=== PATIENT | female | born 1940 | race Asian ===

== ENCOUNTER 2017-10-16 11:45 | Outpatient (CLI) | payer MEDICARE, OTHER | END 2017-10-16 11:46 | disposition home or self-care (01) | LOC: BICRAD 11:45 | PROVIDERS: ATTEND Internal Medicine | DX: R05 Cough (principal) | CPT/HCPCS: 71046 ==

== ENCOUNTER 2017-10-20 10:00 | Observation (INO) | payer MEDICARE, OTHER ==
[2017-10-20] MEDS ORDERED: Ketorolac Tromethamine 30 MG/ML VIAL ONE (10:20)
[2017-10-20 10:45] LABS: #Lymphocytes 0.5 thou/uL (1.20-3.40); #Monocytes 0.6 thou/uL (0.11-0.59); #Neutrophils 7.7 thou/uL (1.40-6.50); %Basophils 0.5 % (0.0-1.0); %Eosinophils 0.1 % (0.0-10.0); %Lymphocytes 6.1 % (21.0-51.0); %Monocytes 6.4 % (0.0-10.0); Hemoglobin 13.5 g/dL (12.0-16.0); Mean Corpuscular HGB CONC 33.8 g/dL (32.0-36.0); Mean Corpuscular Hemoglobin 31.5 pg (27.0-31.0); Mean Corpuscular Volume 93.2 fl (81.0-99.0); Mean Platelet Volume 7.6 fL (7.4-10.4); Platelet Count 174 thou/uL (130-400); RBC Distribution Width 11.1 % (11.5-14.5); Red Blood Cell (RBC) Count 4.28 mill/uL (4.20-5.40); White Blood Cell (WBC) Count 8.8 thou/uL (4.8-10.8)
[2017-10-20 11:13] LABS: ALT (SGPT) 29 U/L (8-55); AST (SGOT) 51 U/L (5-34); Alkaline Phosphatase 72 U/L (40-150); Anion Gap 15 mmol/L (10-20); BUN (Urea Nitrogen) 19 mg/dL (9.8-20.1); Bilirubin, Total 1.6 mg/dL (0.2-1.2); Calc. Creatinine Clearance 0 mL/min (70-130); Calcium 9.7 mg/dL (7.8-10.44); Carbon Dioxide 29 mmol/L (23-31); Chloride 90 mmol/L (98-107); Estimated GFR-MDRD 81; Globulin 2.9 g/dL (2.4-3.5); Glucose 121 mg/dL (83-110); Potassium 3.8 mmol/L (3.5-5.1); Protein, Total 6.9 g/dL (6.0-8.3); Sodium 130 mmol/L (136-145)
[2017-10-20 11:36] LABS: CRP (Inflammatory) 10.37 mg/dL (= or < 0.5)
[2017-10-20 11:41] LABS: Bilirubin Negative (Negative); Blood, Urine Moderate (Negative); Clarity CLEAR (Clear); Glucose, Urine (Dipstick) Negative (Negative); Leukocyte Negative (Negative); Nitrite Negative (Negative); Protein, Urine (Dipstick) 30 mg/dL (Neg-Trace); Specific Gravity, Urine 1.014 (1.002-1.036); Urobilinogen 0.2 mg/dL (0.2-1.0)
[2017-10-20 11:42] LABS: Bacteria/HPF None Seen HPF (None Seen); Hyaline Casts/LPF 0-3 HYALINE CAST LPF (0-3 Hyaline); Squamous Epithelial None Seen HPF (0-3); WBC/HPF None Seen HPF (0-3)
[2017-10-20] MEDS ORDERED: Morphine 10 MG/ML VIAL ONE (12:00)
--- NOTE | 2017-10-20 12:12 | RAD ---
AP VIEW OF THE CHEST: INDICATION: Flu-like symptoms with leg pain. COMPARISON: None. FINDINGS: No airspace consolidation is evident. There is moderate COPD change. There is chondrocalcinosis ove rlying the anterior chest wall. Heart size is upper limits of normal. There are vascular calcificat ions in the aortic arch. No acute osseous abnormality is evident. IMPRESSION: No acute abnormality. POS: [facility]
--- NOTE | 2017-10-20 12:13 | RAD ---
AP VIEW OF THE PELVIS: INDICATION: Flu-like symptoms with leg pain and muscle aches. COMPARISON: None. FINDINGS: There are percutaneous pins transfixing the left sacroiliac joint. There is also a sliding hip screw and side plate involving the proximal left femur. No acute fracture is evident. There is diffuse o steopenia. IMPRESSION: Postoperative pelvis. No acute osseous abnormality. POS: [facility]
--- NOTE | 2017-10-20 13:00 | ULT ---
ULTRASOUND WITH DOPPLER DUPLEX VENOUS LOWER EXTREMITIES BILATERAL: HISTORY: A 77-year-old female with bilateral lower extremity pain. TECHNIQUE: Color flow Doppler, spectral waveform analysis of pulsed Doppler, and connell-scale imaging with shania wild and augmentation, were used to evaluate the bilateral common femoral, femoral, popliteal, machine sign writer ior tibial, and superficial femoral, veins; and the proximal portions of the profunda femoral and gre ater saphenous, veins. FINDINGS: There is normal compressibility, demonstration of blood flow by color Doppler and pulsed Doppler, and response to augmentation, in all interrogated veins. IMPRESSION: Negative. No deep vein thrombosis in the bilateral lower extremities. jn[] POS: [facility]
[2017-10-20] MEDS ORDERED: Sodium Chloride 0.9% 1,000 ML IV SCH (15:23)
[2017-10-20] MEDS ORDERED: Ondansetron ODT 4 MG TAB SL PRN (15:23)
[2017-10-20] MEDS ORDERED: Ondansetron HCl/PF 4 MG/2 ML Vial IVP PRN ×2 (15:23→15:26)
--- NOTE | 2017-10-20 15:25 | HP ---
DATE OF ADMISSION: 10/20/2017 PRIMARY CARE PHYSICIAN: Dr. Ev Blackwell. CHIEF COMPLAINT: Muscle aches, worsening, mostly in legs. HISTORY OF PRESENTING ILLNESS: Ms. Cotton is a very pleasant 77-year-old [place] female with past medic al history of dyslipidemia, currently on statin, who presented to the ER with the above-mentioned com plaints. History is mainly obtained by the patient herself who is a rather poor historian. Suppleme nted by the ER physician. According to the ER physician; patient has been having some flu-like illnesses earlier this week and went to see her primary care physician. She did not receive any Tamiflu for unclear reason; likely b ecause she was out of the window of the treatment. Then, 2 days ago, she started to develop bilatera l lower extremity and hip pain which has gotten worse. She lives by herself and is having difficulty getting around in the house to take care of her ADLs and IADLs. She otherwise denies any nausea, vo miting, diarrhea. She does have some urinary difficulties and has been having some dry cough. She d enies any fever or chills. She denies any injury. She denies any changes in her medication except f or the fact that she has not taken her statin for the last 2 days. Upon presentation to the emergency room, she was hemodynamically stable with blood pressure of 158/91 , pulse of 95, saturating 96% on room air and afebrile. Her workup revealed elevated CPK of over 900 and elevated C-reactive protein of 10. Her urine has moderate blood, rbc's, trace ketones and some protein. She was treated with IV pain medication as well as IV fluids. She underwent a lower extrem ity ultrasound which is negative for any DVT. She underwent x-ray of the pelvis, which is negative f or any osseous abnormality. She is now being admitted under observation status on medical floor for rhabdomyolysis. PAST MEDICAL HISTORY: 1. Dyslipidemia. 2. Glaucoma. PAST SURGICAL HISTORY: 1. Mass removed from intestines. 2. Appendectomy. 3. Left hip surgery. PSYCHIATRIC HISTORY: No anxiety, no depression. SOCIAL HISTORY: No history of drug, tobacco or alcohol abuse. She currently lives alone and has no immediate family locally. FAMILY HISTORY: Significant for unknown type of cancer in her father. Her mother was relatively hea lthy. She denies any family history of heart disease, stroke, diabetes or hypertension. ALLERGIES: No known current allergies. CURRENT MEDICATIONS: Pravastatin 5 mg daily and Alphagan eyedrops twice a day. REVIEW OF SYSTEMS: The following complete review of systems was negative, unless otherwise mentioned in the HPI or below: Constitutional: Weight loss or gain, ability to conduct usual activities. Skin: Rash, itching. Eyes: Double vision, pain. ENT/Mouth: Nose bleeding, neck stiffness, pain, tenderness. Cardiovascular: Palpitations, dyspnea on exertion, orthopnea. Respiratory: Shortness of breath, wheezing, cough, hemoptysis, fever or night sweats. Gastrointestinal: Poor appetite, abdominal pain, heartburn, nausea, vomiting, constipation, or diarr hea. Genitourinary: Urgency, frequency, dysuria, nocturia. Musculoskeletal: Pain, swelling. Neurologic/Psychiatric: Anxiety, depression. Allergy/Immunologic: Skin rash, bleeding tendency. She is still hurting in her leg and complains of generalized weakness. It is negative for those exce pt mentioned in HPI. PHYSICAL EXAMINATION: VITAL SIGNS: Upon presentation, blood pressure 158/91, pulse of 95, respirations 20, temperature 98. 2, and saturating 96% on the room air. GENERAL: She is awake, alert, oriented x3, no acute distress. She does appear tired, weak, and very thin. HEENT: Mucous membrane is moist and pink. No oropharyngeal exudate or erythema. Head is normocepha lic are atraumatic. Pupils are equal and reactive to light and accommodation. Extraocular movement intact. NECK: Supple without any lymphadenopathy, JVD or bruit. CHEST: Clear to auscultation without any wheezing, rales or rhonchi. Rate and rhythm is regular wit hout any murmur, rubs or gallops. ABDOMEN: Soft, nontender, nondistended with positive bowel sounds. EXTREMITIES: Free of any cyanosis, clubbing, or edema. NEUROLOGIC: Examination is nonfocal. SKIN: Free of any rashes or bruises. I feel warm and dry to touch. PSYCHIATRIC: She has somewhat depressed affect. LABORATORY DATA AND IMAGING DATA: 1. Her CBC shows 87% neutrophils. ESR is normal at 11. Serum chemistry shows sodium of 130, chlori de 90, blood sugar 121, lactic acid 1.2, total bilirubin 1.6, AST 51 with normal ALT and alkaline lorena sphatase. Creatinine kinase 917. C-reactive protein is 10.37. Urinalysis showed proteinuria, keton uria and some microscopic hematuria. 2. Chest x-ray by my review has no evidence to suggest pulmonary effusion, edema or infiltrate. Low er extremity ultrasound is negative for any DVT bilaterally. Pelvic x-ray is free of any osseous abn ormalities. IMPRESSION AND PLAN: 1. Acute rhabdomyolysis, this is likely exacerbated by current illness and the fact that the patient has been on statin. I have instructed her to stop the statins for now and discuss the treatment of dyslipidemia with her primary care physician. At this time, she will be treated with generous IV flu ids and we will recheck CPK in the morning. At this time, she has no evidence to suggest renal failu re. She will be treated symptomatically and supportively. We will also check a TSH to rule out othe r etiology. 2. Leukocytosis. This is likely reactive as there is no increase in the total WBC count. Her urine does have some hematuria, but no clear evidence of infection. There is no indication for antibiotic s at this time. 3. Malnutrition. The patient does appear somewhat cachectic. We will start her on Ensure 3 times a day and consult the dietitian for dietary recommendations. 4. History of dyslipidemia. Once again, I have instructed the patient not to use statins in the artie r future without discussion with the primary care physician. If she does indeed need the statin, pra vastatin or fluvastatin will be a safer choice for her. 5. Code status: FULL CODE. Discussed with the patient. DISPOSITION: Ms. Cotton is currently being admitted to medical floor for acute rhabdomyolysis. Estimate d length of stay at this time is less than 2 midnights. Further management will depend upon her clin ical course.
[2017-10-20] MEDS ORDERED: Benzonatate 100 MG CAP PO PRN (15:26)
[2017-10-20] MEDS ORDERED: hydrALAZINE 20 MG/ML VIAL SLOW IVP PRN (15:26)
[2017-10-20] MEDS ORDERED: Diabetic Tussin 200 MG/10 ML UDCUP PO PRN (15:26)
[2017-10-20] MEDS ORDERED: Calcium Carbonate 500 MG ChewTAB PO PRN (15:26)
[2017-10-20] MEDS ORDERED: Mag-Al 1200 mg/1200 mg/30 ML UDCUP PO PRN (15:26)
[2017-10-20] MEDS ORDERED: Loratadine 10 MG TAB PO PRN (15:26)
[2017-10-20] MEDS ORDERED: Lorazepam 1 MG TAB PO PRN (15:26)
[2017-10-20] MEDS ORDERED: Senokot 8.6 MG TAB PO PRN ×2 (15:26)
[2017-10-20] MEDS ORDERED: Nitroglycerin 0.4 MG TAB (25 Tab Bottle) SL PRN (15:26)
[2017-10-20] MEDS ORDERED: cloNIDine 0.1 MG TAB PO PRN (15:26)
[2017-10-20] MEDS ORDERED: Bisacodyl 5 MG TAB PO PRN (15:26)
[2017-10-20] MEDS ORDERED: Acetaminophen 325 MG TAB PO PRN (15:26)
[2017-10-20 16:34] VITALS: BMI 15.0
[2017-10-20] MEDS: Sodium Chloride 0.9% 1,000 ML IV SCH ×2 (16:35→19:07)
[2017-10-20] MEDS: traMADol HCl 50 MG TAB PO PRN (16:45)
[2017-10-20] MEDS: HYDROcodone/Acetaminophen 5/325 mg Tablet PO PRN (19:17)
[2017-10-20] MEDS ORDERED: FLU VACC TS2017-18 (>65YR) 0.5 ML SYRINGE IM ONE (21:00)
[2017-10-21] MEDS: Sodium Chloride 0.9% 1,000 ML IV SCH ×4 (00:29→20:13)
[2017-10-21 04:35] LABS: #Monocytes 0.8 thou/uL (0.11-0.59); #Neutrophils 4.6 thou/uL (1.40-6.50); %Basophils 0.2 % (0.0-1.0); %Eosinophils 0.6 % (0.0-10.0); %Lymphocytes 15.5 % (21.0-51.0); %Monocytes 11.6 % (0.0-10.0); %Neutrophils 72.1 % (42.0-75.0); Mean Corpuscular HGB CONC 33.5 g/dL (32.0-36.0); Mean Corpuscular Hemoglobin 31.6 pg (27.0-31.0); Mean Corpuscular Volume 94.1 fl (81.0-99.0); Mean Platelet Volume 7.3 fL (7.4-10.4); Platelet Count 161 thou/uL (130-400); RBC Distribution Width 11.1 % (11.5-14.5); Red Blood Cell (RBC) Count 3.49 mill/uL (4.20-5.40); White Blood Cell (WBC) Count 6.4 thou/uL (4.8-10.8)
[2017-10-21 05:02] LABS: Anion Gap 10 mmol/L (10-20); BUN (Urea Nitrogen) 14 mg/dL (9.8-20.1); CK (CPK) 282 U/L (29-168); Calc. Creatinine Clearance 51 mL/min (70-130); Calcium 8.1 mg/dL (7.8-10.44); Carbon Dioxide 26 mmol/L (23-31); Chloride 101 mmol/L (98-107); Estimated GFR-MDRD Greater than 90; Glucose 105 mg/dL (83-110); Sodium 134 mmol/L (136-145)
[2017-10-21] MEDS: HYDROcodone/Acetaminophen 5/325 mg Tablet PO PRN ×3 (05:56→21:15)
[2017-10-21] MEDS: traMADol HCl 50 MG TAB PO PRN ×2 (08:00→13:31)
[2017-10-21] MEDS ORDERED: Potassium Chloride 40 MEQ in Premix Bag 1 BAG IVPB SCH (09:15)
[2017-10-21] MEDS ORDERED: Potassium Chloride 40 MEQ, Admixture Fee 1 EACH in Sodium Chloride 0.9% 250 ML 250 ML IVPB SCH (09:30)
--- NOTE | 2017-10-21 13:44 | PDOC.PN ---
- Subjective Encounter Start Date: 10/21/17 Encounter Start Time: 13:43 Subjective: still c/o svere pain in both legs and back ,not moving at all - Objective MAR Reviewed: Yes Vital Signs & Weight: Vital Signs (12 hours) Temp Pulse Resp BP Pulse Ox 10/21/17 11:24 98.6 F 74 18 149/78 H 96 10/21/17 08:00 98.6 F 74 18 93 L 10/21/17 07:41 98.1 F 80 16 162/82 H 93 L 10/21/17 04:00 98.5 F 75 18 135/72 94 L Weight Admit Weight 87 lb 12.48 oz Weight 87 lb 12.48 oz I&O: 10/20/17 10/21/17 10/22/17 06:59 06:59 06:59 Intake Total 4880 Balance 4880 Result Diagrams: 10/21/17 04:20 10/21/17 04:20 Additional Labs: Microbiology 10/20/17 10:38 Urine Straight Catheter Urine Culture - Preliminary NO GROWTH AT 24 HOURS 10/20/17 10:27 Venous blood - Right Arm Blood Culture - Preliminary Specimen has been received and culture in progress. No Growth to date. 10/20/17 10:27 Venous blood - Left Arm Blood Culture - Preliminary Specimen has been received and culture in progress. No Growth to date. Laboratory Tests 10/20/17 10/20/17 10/21/17 10:35 10:35 04:20 Creatine Kinase 917 H 282 H C-Reactive Protein 10.37 H TSH 3rd Generation [id number] 10/21/17 04:20 Creatine Kinase C-Reactive Protein 6.77 H TSH 3rd Generation Phys Exam - Physical Examination very uncomfortable due to pain.cachectic HEENT: PERRLA, moist MMs, sclera anicteric, TM's clear, oral pharynx no lesions , 2+ tonsils Neck: no nodes, no JVD, supple, full ROM Respiratory: no wheezing, no rales, no rhonchi, clear to auscultation bilateral Cardiovascular: RRR, no significant murmur, no rub, gallop Gastrointestinal: soft, non-tender, no distention, positive bowel sounds Musculoskeletal: no edema, pulses present Neurological: non-focal, normal sensation, moves all 4 limbs no erythema,warmth,swelling in leg.non tarumatic Psychiatric: normal affect, A&O x 3 Skin: no rash Dx/Plan (1) Rhabdomyolysis Code(s): M62.82 - RHABDOMYOLYSIS Status: Acute Qualifiers: Rhabdomyolysis type: non-traumatic Qualified Code(s): M62.82 - Rhabdomyolysis (2) Hypokalemia Code(s): E87.6 - HYPOKALEMIA Status: Acute (3) Pain Code(s): R52 - PAIN, UNSPECIFIED Status: Acute (4) HLD (hyperlipidemia) Code(s): E78.5 - HYPERLIPIDEMIA, UNSPECIFIED Status: Chronic (5) Moderate protein-calorie malnutrition Code(s): E44.0 - MODERATE PROTEIN-CALORIE MALNUTRITION Status: Chronic - Plan PT/OT, out of bed/ambulate, DVT proph w/SCDs CPK & CRP both trending down w IVF.cont NS.add prn morphine -: likley rhabdo on top of statin induced myopathy.Statin stopped -: pt unable to go home d/t uncontrolled pain.will have rehab eval -: lives alone and high risk of re-admit as she won't be able to take care of -: herself.encouraged to move to prevent further muscle damage * .recheck CPK in am * replace and recheck potassium * Ensure TID.consult dietitian Review of Systems - Review of Systems Constitutional: weakness, malaise ENT: negative: Ear Pain, Ear Discharge, Nose Pain, Nose Discharge, Nose Congestion, Mouth Pain, Mouth Swelling, Throat Pain, Throat Swelling, Other Respiratory: negative: Cough, Dry, Shortness of Breath, Hemoptysis, SOB with Excertion, Pleuritic Pain, Sputum, Wheezing Cardiovascular: negative: chest pain, palpitations, orthopnea, paroxysmal nocturnal dyspnea, edema, light headedness, other Gastrointestinal: negative: Nausea, Vomiting, Abdominal Pain, Diarrhea, Constipation, Melena, Hematochezia, Other Genitourinary: negative: Dysuria, Frequency, Incontinence, Hematuria, Retention , Other Musculoskeletal: Leg Pain. negative: Neck Pain, Shoulder Pain, Arm Pain, Back Pain, Hand Pain, Foot Pain, Other Neurological: negative: Weakness, Numbness, Incoordination, Change in Speech, Confusion, Seizures, Other - Medications/Allergies Allergies/Adverse Reactions: Allergies Allergy/AdvReac Type Severity Reaction Status Date / Time No Known Allergies Allergy Unverified 10/20/17 15:23 Medications: Current Medications Acetaminophen (Tylenol) 650 mg PO Q4H PRN PRN Reason: Headache/Fever or Pain Hydrocodone Bitart/Acetaminophen ([place] 5/325) 1 tab PO Q4H PRN PRN Reason: Moderate Pain (4-6) Last Admin: 10/21/17 10:52 Dose: 1 tab Al Hydroxide/Mg Hydroxide (Maalox) 30 ml PO Q6H PRN PRN Reason: Heartburn or Indigestion Benzonatate (Tessalon) 100 mg PO Q4H PRN PRN Reason: Cough Bisacodyl (Dulcolax) 10 mg PO DAILYPRN PRN PRN Reason: Constipation Bisacodyl (Dulcolax) 10 mg PO DAILYPRN PRN PRN Reason: Constipation Calcium Carbonate (Tums) 1,000 mg PO Q4H PRN PRN Reason: Heartburn or Indigestion Clonidine (Catapres) 0.1 mg PO Q4H PRN PRN Reason: Systolic BP > 160 Guaifenesin (Robitussin Sf) 200 mg PO Q4H PRN PRN Reason: Cough Hydralazine HCl (Apresoline) 10 mg SLOW IVP Q4H PRN PRN Reason: Systolic BP > 170 Sodium Chloride (Normal Saline 0.9%) 1,000 mls @ 200 mls/hr IV .Q5H ABIGAIL Last Admin: 10/21/17 10:54 Dose: 1,000 mls Loratadine (Claritin) 10 mg PO DAILYPRN PRN PRN Reason: Sinus Symptoms Lorazepam (Ativan) 1 mg PO Q4H PRN PRN Reason: Anxiety/Agitation Nitroglycerin (Nitrostat) 0.4 mg SL Q5MIN PRN PRN Reason: Chest Pain Ondansetron HCl (Zofran) 4 mg IVP Q6H PRN PRN Reason: Nausea/Vomiting Senna (Senokot) 2 tab PO HSPRN PRN PRN Reason: Constipation Senna (Senokot) 2 tab PO HSPRN PRN PRN Reason: Constipation Sodium Chloride (Flush - Normal Saline) 10 ml IVF Q12HR ABIGAIL Sodium Chloride (Flush - Normal Saline) 10 ml IVF PRN PRN PRN Reason: Saline Flush Tramadol HCl (Ultram) 50 mg PO Q4H PRN PRN Reason: Moderate Pain (4-6) Last Admin: 10/21/17 08:00 Dose: 50 mg
[2017-10-21] MEDS: Bisacodyl 5 MG TAB PO PRN (15:05)
[2017-10-21] MEDS: Morphine 5 MG/ML SYRINGE SLOW IVP PRN ×2 (15:45→20:14)
[2017-10-22] MEDS: Sodium Chloride 0.9% 1,000 ML IV SCH ×4 (01:19→18:25)
[2017-10-22] MEDS: HYDROcodone/Acetaminophen 5/325 mg Tablet PO PRN ×3 (04:54→20:55)
[2017-10-22 05:13] LABS: Anion Gap 8 mmol/L (10-20); BUN (Urea Nitrogen) 9 mg/dL (9.8-20.1); CK (CPK) 143 U/L (29-168); Calc. Creatinine Clearance 53 mL/min (70-130); Calcium 8.1 mg/dL (7.8-10.44); Carbon Dioxide 30 mmol/L (23-31); Chloride 99 mmol/L (98-107); Estimated GFR-MDRD Greater than 90; Glucose 123 mg/dL (83-110); Sodium 134 mmol/L (136-145)
[2017-10-22 05:18] LABS: Potassium 2.8 mmol/L (3.5-5.1)
[2017-10-22] MEDS: traMADol HCl 50 MG TAB PO PRN (06:25)
[2017-10-22] MEDS: Morphine 5 MG/ML SYRINGE SLOW IVP PRN ×3 (09:06→22:16)
[2017-10-22] MEDS: Bisacodyl 5 MG TAB PO PRN (09:47)
--- NOTE | 2017-10-22 12:47 | PDOC.PN ---
- Subjective Encounter Start Date: 10/22/17 Encounter Start Time: 12:45 Subjective: a liitle better but only when uses morphine -: says that moving ,even in bed is painful.back hurts & legs hurt - Objective MAR Reviewed: Yes Vital Signs & Weight: Vital Signs (12 hours) Temp Pulse Pulse Pulse Resp BP BP 10/22/17 10:45 87 91 159/83 H 129/76 10/22/17 07:25 99.0 F 87 18 10/22/17 05:37 98.6 F 70 18 BP Pulse Ox Pulse Ox Pulse Ox 10/22/17 10:45 96 90 L 10/22/17 07:25 165/86 H 95 10/22/17 05:37 145/74 H 94 L Weight Admit Weight 87 lb 12.48 oz Weight 87 lb 12.48 oz I&O: 10/21/17 10/22/17 10/23/17 06:59 06:59 06:59 Intake Total 4880 240 Output Total 4500 Balance 4880 -4260 Result Diagrams: 10/21/17 04:20 10/22/17 04:28 Additional Labs: Microbiology 10/20/17 10:38 Urine Straight Catheter Urine Culture - Final NO GROWTH AT 48 HOURS 10/20/17 10:27 Venous blood - Right Arm Blood Culture - Preliminary NO GROWTH AT 48 HOURS 10/20/17 10:27 Venous blood - Left Arm Blood Culture - Preliminary NO GROWTH AT 48 HOURS Laboratory Tests 10/20/17 10/21/17 10/21/17 10:35 04:20 04:20 Magnesium Creatine Kinase 917 H 282 H C-Reactive Protein 10.37 H 6.77 H 10/22/17 10/22/17 10/22/17 04:28 04:28 04:28 Magnesium 1.5 L Creatine Kinase 143 C-Reactive Protein 3.65 H Phys Exam - Physical Examination Constitutional: NAD more comfortable than yesterday HEENT: PERRLA, moist MMs, sclera anicteric, oral pharynx no lesions Neck: no nodes, no JVD, supple, full ROM Respiratory: no wheezing, no rales, no rhonchi, clear to auscultation bilateral Cardiovascular: RRR, no significant murmur Gastrointestinal: soft, non-tender, no distention, positive bowel sounds Musculoskeletal: no edema, pulses present no swelling,erythema,tenderness in legs.moving against gravity Neurological: non-focal, normal sensation, moves all 4 limbs Psychiatric: normal affect, A&O x 3 Skin: no rash Dx/Plan (1) Rhabdomyolysis Code(s): M62.82 - RHABDOMYOLYSIS Status: Acute Qualifiers: Rhabdomyolysis type: non-traumatic Qualified Code(s): M62.82 - Rhabdomyolysis (2) Hypokalemia Code(s): E87.6 - HYPOKALEMIA Status: Acute (3) Pain Code(s): R52 - PAIN, UNSPECIFIED Status: Acute (4) HLD (hyperlipidemia) Code(s): E78.5 - HYPERLIPIDEMIA, UNSPECIFIED Status: Chronic (5) Moderate protein-calorie malnutrition Code(s): E44.0 - MODERATE PROTEIN-CALORIE MALNUTRITION Status: Chronic - Plan PT/OT, out of bed/ambulate CPK Normalised.CRP trending down.reduce IVF.encouraged for PO intake -: replace & recheck Potassium & mag. -: awaitin Rehab eval per her request.lives alone & can not go home -: not moving out of bed so far due to pain -: am labs.Statin stopped * . Review of Systems - Review of Systems Constitutional: weakness, malaise. negative: fever, chills, sweats, other Eyes: negative: Pain, Vision Change, Conjunctivae Inflammation, Eyelid Inflammation, Redness, Other ENT: negative: Ear Pain, Ear Discharge, Nose Pain, Nose Discharge, Nose Congestion, Mouth Pain, Mouth Swelling, Throat Pain, Throat Swelling, Other Respiratory: negative: Cough, Dry, Shortness of Breath, Hemoptysis, SOB with Excertion, Pleuritic Pain, Sputum, Wheezing Cardiovascular: negative: chest pain, palpitations, orthopnea, paroxysmal nocturnal dyspnea, edema, light headedness, other Gastrointestinal: negative: Nausea, Vomiting, Abdominal Pain, Diarrhea, Constipation, Melena, Hematochezia, Other Genitourinary: negative: Dysuria, Frequency, Incontinence, Hematuria, Retention , Other Musculoskeletal: Back Pain, Leg Pain. negative: Neck Pain, Shoulder Pain, Arm Pain, Hand Pain, Foot Pain, Other Skin: negative: Rash, Lesions, Lei, Bruising, Other Neurological: negative: Weakness, Numbness, Incoordination, Change in Speech, Confusion, Seizures, Other - Medications/Allergies Allergies/Adverse Reactions: Allergies Allergy/AdvReac Type Severity Reaction Status Date / Time No Known Allergies Allergy Unverified 10/20/17 15:23 Medications: Current Medications Acetaminophen (Tylenol) 650 mg PO Q4H PRN PRN Reason: Headache/Fever or Pain Hydrocodone Bitart/Acetaminophen ([place] 5/325) 1 tab PO Q4H PRN PRN Reason: Moderate Pain (4-6) Last Admin: 10/22/17 04:54 Dose: 1 tab Al Hydroxide/Mg Hydroxide (Maalox) 30 ml PO Q6H PRN PRN Reason: Heartburn or Indigestion Benzonatate (Tessalon) 100 mg PO Q4H PRN PRN Reason: Cough Bisacodyl (Dulcolax) 10 mg PO DAILYPRN PRN PRN Reason: Constipation Last Admin: 10/22/17 09:47 Dose: 10 mg Bisacodyl (Dulcolax) 10 mg PO DAILYPRN PRN PRN Reason: Constipation Brimonidine Tartrate (Alphagan 0.2% Oph Soln) 1 drop L EYE BID ABIGAIL Calcium Carbonate (Tums) 1,000 mg PO Q4H PRN PRN Reason: Heartburn or Indigestion Clonidine (Catapres) 0.1 mg PO Q4H PRN PRN Reason: Systolic BP > 160 Guaifenesin (Robitussin Sf) 200 mg PO Q4H PRN PRN Reason: Cough Hydralazine HCl (Apresoline) 10 mg SLOW IVP Q4H PRN PRN Reason: Systolic BP > 170 Sodium Chloride (Normal Saline 0.9%) 1,000 mls @ 200 mls/hr IV .Q5H ABIGAIL Last Admin: 10/22/17 11:33 Dose: 1,000 mls Magnesium Sulfate 3 gm/ Sodium (Chloride) 106 mls @ 100 mls/hr IVPB ONE ABIGAIL Loratadine (Claritin) 10 mg PO DAILYPRN PRN PRN Reason: Sinus Symptoms Lorazepam (Ativan) 1 mg PO Q4H PRN PRN Reason: Anxiety/Agitation Morphine Sulfate (Morphine) 2 mg SLOW IVP Q4H PRN PRN Reason: severe pain Last Admin: 10/22/17 09:06 Dose: 2 mg Nitroglycerin (Nitrostat) 0.4 mg SL Q5MIN PRN PRN Reason: Chest Pain Ondansetron HCl (Zofran) 4 mg IVP Q6H PRN PRN Reason: Nausea/Vomiting Senna (Senokot) 2 tab PO HSPRN PRN PRN Reason: Constipation Senna (Senokot) 2 tab PO HSPRN PRN PRN Reason: Constipation Sodium Chloride (Flush - Normal Saline) 10 ml IVF Q12HR ABIGAIL Last Admin: 10/22/17 09:14 Dose: 10 ml Sodium Chloride (Flush - Normal Saline) 10 ml IVF PRN PRN PRN Reason: Saline Flush Tramadol HCl (Ultram) 50 mg PO Q4H PRN PRN Reason: Moderate Pain (4-6) Last Admin: 10/22/17 06:25 Dose: 50 mg
[2017-10-22] MEDS ORDERED: Magnesium Sulfate 3 GM in Sodium Chloride 0.9% 100 ML IVPB SCH (13:00)
[2017-10-22 13:28] LABS: Anion Gap 10 mmol/L (10-20); BUN (Urea Nitrogen) 7 mg/dL (9.8-20.1); Calc. Creatinine Clearance 50 mL/min (70-130); Calcium 8.4 mg/dL (7.8-10.44); Carbon Dioxide 32 mmol/L (23-31); Chloride 97 mmol/L (98-107); Estimated GFR-MDRD Greater than 90; Glucose 109 mg/dL (83-110); Potassium 3.3 mmol/L (3.5-5.1); Sodium 136 mmol/L (136-145)
[2017-10-22] MEDS: Brimonidine Tartrate 0.2% Ophth Soln 5 ml Bottle L EYE SCH (20:40)
[2017-10-23] MEDS: Morphine 5 MG/ML SYRINGE SLOW IVP PRN (04:04)
[2017-10-23 04:55] LABS: Anion Gap 9 mmol/L (10-20); BUN (Urea Nitrogen) 13 mg/dL (9.8-20.1); Calc. Creatinine Clearance 53 mL/min (70-130); Calcium 8.9 mg/dL (7.8-10.44); Carbon Dioxide 34 mmol/L (23-31); Chloride 94 mmol/L (98-107); Estimated GFR-MDRD Greater than 90; Glucose 112 mg/dL (83-110); Magnesium 2.1 mg/dL (1.6-2.6); Potassium 3.3 mmol/L (3.5-5.1); Sodium 134 mmol/L (136-145)
[2017-10-23] MEDS: Bisacodyl 5 MG TAB PO PRN (08:56)
[2017-10-23] MEDS: Brimonidine Tartrate 0.2% Ophth Soln 5 ml Bottle L EYE SCH (08:57)
[2017-10-23] MEDS: HYDROcodone/Acetaminophen 5/325 mg Tablet PO PRN (09:13)
[2017-10-23] MEDS ORDERED: Potassium Chloride 20 MEQ TAB PO SCH (11:00)
[2017-10-23 12:37] VITALS: BP 121/67; TEMP 99.7
--- NOTE | 2017-10-23 13:00 | DIS ---
PRIMARY CARE PHYSICIAN: Dr. Ev Blackwell DATE OF ADMISSION: 10/20/2017 DATE OF DISCHARGE: 10/23/2017 DISCHARGE DIAGNOSES: 1. Rhabdomyolysis. 2. Physical deconditioning. 3. Protein calorie malnutrition, moderate. CONDITION OF PATIENT ON THE DAY OF DISCHARGE: I assessed Ms. Cotton on the day of discharge. She denie s any chest pain or shortness of breath. She reports generalized weakness. She reports pain in her lower extremities. Vital signs are stable. S1 and S2 are heard, regular. Lungs are clear to auscul tation bilaterally DISCHARGE MEDICATIONS: Alphagan eyedrops 1 drop to left eye 2 times a day, Tylenol #3 one tablet julito ry 6 hours as needed, tramadol 50 mg every 6 hours as needed. HOSPITAL COURSE: Ms. Cotton is a pleasant 77-year-old lady who was admitted to [facility] on 10/20/2017 for rhabdomyolysis, most likely secondary to statin use. She also had bodyach es. She was treated with intravenous fluids, with resolution of rhabdomyolysis. She is physically d econditioned and is being discharged to [facility] for further management. On the day of discharge, she has sodium 134, potassium 3.3, which is being replaced, creatinine 0.55 and a carbon dioxide 34. Her TSH during this hospitalization was normal. Many thanks for allowing me to participate in your patient's care. Please feel free to contact me wi th any questions or concerns. DISCHARGE DESTINATION: [facility]. TOTAL AMOUNT OF TIME SPENT COORDINATING THIS DISCHARGE: 32 minutes.
[2017-10-23] MEDS: traMADol HCl 50 MG TAB PO PRN (13:18)
== END 2017-10-23 14:31 ==
LOC: ERS 10:00 → T4-A 12:40
PROVIDERS: ADMIT Internal Medicine Infectious Disease; ATTEND Internal Medicine Infectious Disease
DX: M62.82 Rhabdomyolysis (principal); E87.6 Hypokalemia; E78.5 Hyperlipidemia, unspecified; H40.9 Unspecified glaucoma; D72.829 Elevated white blood cell count, unspecified; E44.0 Moderate protein-calorie malnutrition; Z68.1 Body mass index [BMI] 19.9 or less, adult; Z79.899 Other long term (current) drug therapy; Z98.890 Other specified postprocedural states
CPT/HCPCS: 51701; 71045; 72170; 80048 ×4; 82550 ×3; 83605; 83735 ×2; 85025; 85652; 86140 ×3; 87040; 87086; 93970; 94640; 96361 ×4; 96365; 96375; 96376 ×3; 97116; 97139 ×3; 97530; 99285; G0008; G0378 ×2; G8978; G8979; Q2036; 36415; 80053; 81003; 81015; 84443; 90471; 90682; 96374; J2270; A4216; A4353; J0360; J1885; J3475; J3480; J7050; J7620

== ENCOUNTER 2017-11-22 09:04 | Outpatient (CLI) | payer MEDICARE, OTHER ==
--- NOTE | 2017-11-27 15:58 | RAD ---
MODIFIED BARIUM SWALLOW: 11/27/17 HISTORY: Swallowing difficulty. COMPARISON: None. FINDINGS: Modified barium swallow is performed in the presence of the speech pathologist. The image submitted a re nondiagnostic as they are subtraction phase images. IMPRESSION: Nondiagnostic images. POS: [facility]
== END 2017-11-22 09:05 | disposition home or self-care (01) ==
PROVIDERS: ATTEND Family Medicine
DX: R13.12 Dysphagia, oropharyngeal phase (principal); R63.3 Feeding difficulties; R41.89 Other symptoms and signs involving cognitive functions and awareness
CPT/HCPCS: 74230

== ENCOUNTER 2017-11-24 02:11 | Observation (INO) | payer MEDICARE, OTHER ==
[2017-11-24 02:41] LABS: #Basophils 0.1 thou/uL (0.0-0.2); #Eosinphils 0.1 thou/uL (0.0-0.7); #Lymphocytes 1.3 thou/uL (1.20-3.40); #Monocytes 0.7 thou/uL (0.11-0.59); #Neutrophils 5.5 thou/uL (1.40-6.50); %Basophils 0.7 % (0.0-1.0); %Eosinophils 1.4 % (0.0-10.0); %Lymphocytes 17.1 % (21.0-51.0); %Monocytes 9.1 % (0.0-10.0); %Neutrophils 71.7 % (42.0-75.0); Hemoglobin 11.4 g/dL (12.0-16.0); Mean Corpuscular HGB CONC 33.9 g/dL (32.0-36.0); Mean Corpuscular Hemoglobin 32.9 pg (27.0-31.0); Mean Corpuscular Volume 96.9 fl (81.0-99.0); Mean Platelet Volume 6.2 fL (7.4-10.4); Platelet Count 280 thou/uL (130-400); RBC Distribution Width 12.8 % (11.5-14.5); Red Blood Cell (RBC) Count 3.45 mill/uL (4.20-5.40); White Blood Cell (WBC) Count 7.6 thou/uL (4.8-10.8)
[2017-11-24 03:03] LABS: ALT (SGPT) 27 U/L (8-55); AST (SGOT) 18 U/L (5-34); Albumin 3.9 g/dL (3.4-4.8); Alkaline Phosphatase 119 U/L (40-150); Anion Gap 11 mmol/L (10-20); BUN (Urea Nitrogen) 26 mg/dL (9.8-20.1); Bilirubin, Total 0.4 mg/dL (0.2-1.2); CK (CPK) 29 U/L (29-168); Calc. Creatinine Clearance 0 mL/min (70-130); Calcium 9.4 mg/dL (7.8-10.44); Carbon Dioxide 30 mmol/L (23-31); Chloride 96 mmol/L (98-107); Estimated GFR-MDRD 74; Globulin 2.6 g/dL (2.4-3.5); Glucose 113 mg/dL (83-110); Potassium 3.8 mmol/L (3.5-5.1); Protein, Total 6.5 g/dL (6.0-8.3); Sodium 133 mmol/L (136-145)
[2017-11-24 03:06] LABS: CKMB 0.6 ng/mL (0-6.6); Troponin I 0.019 ng/mL (< 0.028)
[2017-11-24 06:02] LABS: Troponin I Less than 0.010 ng/mL (< 0.028)
[2017-11-24] MEDS ORDERED: Aspirin 325 MG TAB ONE (06:50)
[2017-11-24] MEDS ORDERED: Senokot 8.6 MG TAB PO PRN (07:05)
[2017-11-24] MEDS ORDERED: Ondansetron HCl/PF 4 MG/2 ML Vial IVP PRN (07:05)
[2017-11-24] MEDS ORDERED: HYDROcodone/Acetaminophen 5/325 mg Tablet PO PRN (07:05)
[2017-11-24] MEDS ORDERED: Benzonatate 100 MG CAP PO PRN ×2 (07:05→10:48)
[2017-11-24] MEDS ORDERED: Lorazepam 1 MG TAB PO PRN (07:05)
[2017-11-24] MEDS ORDERED: hydrALAZINE 20 MG/ML VIAL SLOW IVP PRN (07:05)
[2017-11-24] MEDS ORDERED: Bisacodyl 5 MG TAB PO PRN (07:05)
[2017-11-24] MEDS ORDERED: Mag-Al 1200 mg/1200 mg/30 ML UDCUP PO PRN (07:05)
[2017-11-24] MEDS ORDERED: Loratadine 10 MG TAB PO PRN (07:05)
[2017-11-24] MEDS ORDERED: Calcium Carbonate 500 MG ChewTAB PO PRN ×2 (07:05→10:48)
[2017-11-24] MEDS ORDERED: cloNIDine 0.1 MG TAB PO PRN (07:05)
[2017-11-24] MEDS ORDERED: Nitroglycerin 0.4 MG TAB (25 Tab Bottle) PO PRN (07:05)
[2017-11-24] MEDS ORDERED: Diabetic Tussin 200 MG/10 ML UDCUP PO PRN (07:05)
[2017-11-24] MEDS ORDERED: Acetaminophen 325 MG TAB PO PRN (07:05)
[2017-11-24 07:41] LABS: Cardiac Risk 4.3 (Less than 4.5)
--- NOTE | 2017-11-24 08:30 | RAD ---
CHEST 1 VIEW: Date: 11/24/17 HISTORY: Chest pain. COMPARISON: 10/20/17. FINDINGS: Cardiac silhouette is magnified by projection. Pulmonary vasculature is unremarkable. Lungs are hyper inflated. Mediastinum is midline with aortic calcification. No lobar consolidation or evidence of pne umothorax. IMPRESSION: 1 COPD. 2. Atherosclerosis. POS: [facility]
[2017-11-24] MEDS ORDERED: Morphine 5 MG/ML SYRINGE SLOW IVP PRN (08:48)
[2017-11-24 08:53] LABS: Bilirubin Negative (Negative); Blood, Urine Trace (Negative); Clarity TURBID (Clear); Glucose, Urine (Dipstick) Negative (Negative); Leukocyte Moderate (Negative); Nitrite Negative (Negative); Protein, Urine (Dipstick) Negative (Neg-Trace); Specific Gravity, Urine 1.013 (1.002-1.036); Urobilinogen 0.2 mg/dL (0.2-1.0)
[2017-11-24 08:54] LABS: Bacteria/HPF 2+ HPF (None Seen); Hyaline Casts/LPF 4-6 HYALINE CAST LPF (0-3 Hyaline); Pathc Cast-AUWi Flag 1.45 (0-2.49); Squamous Epithelial 0-3 HPF (0-3)
[2017-11-24 08:57] VITALS: BMI 15.0
[2017-11-24 09:01] LABS: Troponin I 0.011 ng/mL (< 0.028)
[2017-11-24 09:07] LABS: Yeast-AUWi Flag 96.9 (0-25.0)
[2017-11-24 09:08] LABS: Yeast-All Forms None Seen HPF (None Seen)
[2017-11-24] MEDS ORDERED: Artificial Tears 18 DROP/0.9 ML EA EYE PRN (10:48)
[2017-11-24] MEDS ORDERED: Bisacodyl 10 MG SUPP PR PRN (10:48)
[2017-11-24] MEDS ORDERED: Calcium Carbonate 500 MG TAB PO PRN (10:48)
[2017-11-24] MEDS ORDERED: Acetaminophen/Codeine 30-300mg Tablet PO PRN (10:48)
[2017-11-24] MEDS ORDERED: Simethicone Chewable 80 MG TAB PO PRN (10:48)
[2017-11-24] MEDS ORDERED: cefTRIAXone\\ROCEPHIN 1 GM in Sodium Chloride 0.9% 100 ML IVPB SCH (11:00)
[2017-11-24] MEDS ORDERED: VANCOMYCIN IVPB PRN (11:22)
[2017-11-24] MEDS ORDERED: Amlodipine 5 MG TAB PO SCH (11:30)
[2017-11-24] MEDS: Enoxaparin Sodium 40 MG/0.4 ML SYRINGE SC SCH (11:44)
[2017-11-24] MEDS: Aspirin 325 MG TAB PO SCH (11:44)
[2017-11-24] MEDS: cefTRIAXone\\ROCEPHIN 1 GM, Syringe 0.4 ML in Sterile Water 9.6 ML SLOW IVP SCH (11:45)
--- NOTE | 2017-11-24 12:02 | HP ---
DATE OF ADMISSION: 11/24/2017 CHIEF COMPLAINT: Chest pain and altered mental status. HISTORY OF PRESENT ILLNESS: Ms. Cotton is a 77-year-old Welsh female with past medical history of hyp ertension and dyslipidemia who was last admitted to our facility in 10/2017 for statin-induced rhabdo myolysis, came back from the rehab today for the above-mentioned complaint. History is mainly obtain ed by the patient herself who is a very poor historian, and supplemented by the electronic medical re cords. Ms. Cotton has been in [facility] completing her rehabilitation after her last hospitalization. Wh en prompted, she did say yes that she did have some chest pain. She describes it as 7/10 in intensit y, not very sharp pain associated with some numbness, tingling and/or radiation to left arm. She say s that yes, she was somewhat short of breath with this as well. Other than that, she is not able to provide me much history. According to the ER notes, she was given nitroglycerin x3, but continued to complain of the chest pain. She was hypertensive, but the nitroglycerin helped improve her blood pr essure. She was sent to our facility for further workup. In the emergency room, her blood pressure was 140/81 at the time of presentation. Her 12-lead EKG combs d no changes consistent with ACS. Chest x-ray was negative. Cardiac enzymes were negative. She was given 325 mg of aspirin and Internal Medicine team has been asked to admit her for chest pain workup and rule out acute coronary syndrome. By reviewing her chart, it seems like she has some imaging studies done in the outpatient setting on 10/27/2017 and 11/01/[address] a lumbar spinal CT and MRI. Both of these are consistent with S1 , S2 displaced fractures as well as extensive sacral ala fractures. I am not sure if the patient has seen Orthopedics in the rehabilitation or if this has been addressed as there is no record. The jeancarlos calzada is not able to tell me that either. Currently, she is not having any back brace per se. When a sked if she is able to do the rehabilitation, she is not able to answer this question. PAST MEDICAL HISTORY: 1. Hypertension. 2. Dyslipidemia. 3. Statin-induced rhabdomyolysis. 4. Generalized weakness. 5. Severe protein calorie malnutrition with a BMI of 15. PAST SURGICAL HISTORY: 1. Mesh removed from intestine. 2. Appendectomy. 3. Left hip surgery. PSYCHIATRIC HISTORY: Noted as no anxiety or depression, but the last 2 times I have taken care of th is patient, she does appear depressed to me. SOCIAL HISTORY: She is currently a resident of [facility] doing rehabilitation. She has not been home si kye her last discharge from the hospital about a month ago. FAMILY HISTORY: Unknown type of cancer in her father. No history of premature coronary artery disea se, stroke, diabetes or hypertension. ALLERGIES: No known medication allergies. CURRENT HOME MEDICATIONS: As per the [facility], trazodone 100 mg at bedtime, ciprofloxacin 250 m g p.o. b.i.d., Tylenol with Codeine #3 as needed; Tylenol as needed, tramadol 50 mg p.o. b.i.d. and 1 00 mg daily; Artificial Tears, simethicone as needed, senna p.r.n., MiraLax p.r.n., nitroglycerin p.r .n. sublingual, melatonin 3 mg at bedtime, Milk of Magnesia p.r.n., Catapres p.r.n., calcium, Tums, b enzonatate, Benadryl p.r.n., etc. REVIEW OF SYSTEMS: Limited review of systems because the patient is a little bit confused and is jeff y soft spoken and does not talk much. At this time, she denies any discomfort, pain, shortness of br eath. She denies any nausea, vomiting, diarrhea, abdominal pain. She denies any headache, vision ch anges or muscle weakness. Her only complaint at this time is pain in her hip and back of her legs. PHYSICAL EXAMINATION: VITAL SIGNS: Most recent vital signs, temperature 97.6, pulse of 74, respirations 16, saturating 97% on room air, blood pressure 165/75. GENERAL: No acute distress, awake and alert. Oriented to self, but had to be redirected about the p lace and person. She appears severely cachectic as during her prior admission as well. HEENT: Mucous membranes are slightly dry. No oropharyngeal exudate or erythema. Head is normocepha lic, atraumatic. Pupils are equal, reactive to light and accommodation. NECK: Supple without any lymphadenopathy, JVD or bruit. CHEST: Clear to auscultation without any wheezing, rales or rhonchi. HEART: Rate and rhythm is regular without any murmur, rubs or gallops. ABDOMEN: Soft, nontender, nondistended, positive bowel sounds. EXTREMITIES: Free of any cyanosis, clubbing, or edema. NEUROLOGIC: Unremarkable. She is able to move both of the lower extremities without any difficulty, though she complains of some pain in the right leg with movement. PSYCHIATRIC: Depressed affect. SKIN: Free of any rashes or bruises. Feels warm and dry to touch. EXTREMITIES: Free of any cyanosis, clubbing, or edema. LABORATORY DATA: Her CBC shows hemoglobin of 11.4, otherwise unremarkable. Serum chemistries show s odium 133, chloride 96, BUN 26, blood sugar 113. Troponin is less than 0.019 and then less than 0.01 0 x2. Her triglyceride is 96, total cholesterol 284, LDL 199, HDL 66. Urinalysis show moderate leuk ocyte esterase, wbc's and bacteria and some trace blood. Chest x-ray by my review has no evidence to suggest pulmonary edema, effusion or infiltrate. Twelve lead EKG unremarkable showing normal sinus rhythm. IMPRESSION AND PLAN: 1. Chest pain. The patient does have history of hypertension and dyslipidemia. At this time, we wi ll start her on low dose amlodipine to control the blood pressure. She has statin intolerance and we will avoid any statins at this time. We will go ahead and order a stress test for this patient. Th e patient has consented for it. Continue aspirin meanwhile. 2. Urinary tract infection. Looking back in her EMR, there is a urine culture dated from 10/26/2017 . It is positive for Morganella as well as Enterococcus. Unfortunately, both of these bacteria have different antibiotic sensitivity profile. Based on this, we will start her on vancomycin and Roceph in until new urine culture has been available, one is being sent. 3. Hyponatremia and hypochloremia, most likely dehydration. Because of the high blood pressure at t his time, we will avoid starting her on IV fluids. We will encourage oral intake and add plenty of f luids as well as Ensure 3 times a day. If her oral intake is not adequate, we will go ahead and star t her on normal saline. 4. Sacral fractures. I am not sure what has been done about these and chronicity or acuity of the n ature of these fractures. We will request consultation with Orthopedics for possible back brace vers us kyphoplasty if this is amenable to kyphoplasty. The patient's rehab is greatly hampered because o f these fractures as she is always in pain, using a lot of pain medications around the clock. 5. Severe malnutrition, we will continue the Ensure t.i.d. while she is here. Encourage oral intake . 6. Generalized weakness. We will continue her rehabilitation while she is here with Occupational th erapist and physical therapist. 7. Recent rhabdomyolysis. Continue to avoid statins and related medications. Her CPK at this time is within normal limits. 8. Code status: FULL CODE. Discussed with the patient. 9. Add p.r.n. medication orders and supportive care. DISPOSITION: Ms. Cotton is currently being admitted for chest pain workup. She also seems to have a uri nary tract infection which will be treated simultaneously. Further management will depend upon her c linical course. Currently, she is being admitted under observation status. Please note that she ashley l return back to [facility] if her cardiac workup is negative.
[2017-11-24] MEDS: Vancomycin HCl 750 MG in Sodium Chloride 0.9% 250 ML 250 ML IVPB SCH (12:57)
[2017-11-24] MEDS: traMADol HCl 50 MG TAB PO PRN (15:19)
--- NOTE | 2017-11-24 15:29 | RAD ---
SACRUM AND COCCYX 1 VIEW: Date: 11/24/17 HISTORY: Fracture. FINDINGS: Sacrum is completely obscured by bowel content and contrast material. Postoperative changes of the le ft hip and left side of the pelvis are apparent. No gross malalignment is evident. Osseous structures are demineralized. IMPRESSION: Sacrum not well evaluated due to osteoporosis and bowel content. POS: NERY
--- NOTE | 2017-11-24 19:22 | CON ---
DATE OF CONSULTATION: 11/24/2017 CHIEF COMPLAINT: Chest pain. HISTORY OF PRESENT ILLNESS: Ms. Cotton is a 77-year-old female who was admitted for chest pain. She is having ongoing workup for this by the Internal Medicine Service. She was noted to have a CT scan elio ed from 10/27/2017 which demonstrated sacral insufficiency fractures. It was unknown if she had been treated for this. Orthopedics was consulted. She is a poor historian. She does not complain of ac tive pain. She is not in a brace. She denies being treated for her sacral fractures or seeing a doc tor for this since the images were taken. She denies any recent falls. She is lying in bed. She re ports that she can ambulate with a walker. PAST MEDICAL HISTORY: Hypertension, hyperlipidemia, history of rhabdomyolysis, history of weakness, and history of malnutrition. PAST SURGICAL HISTORY: Hernia repair, appendectomy, left hip fracture surgery as well as pelvic frac ture fixation. PSYCHIATRIC HISTORY: Negative. SOCIAL HISTORY: The patient lives at [facility]. She denies tobacco, alcohol, or drug use. FAMILY MEDICAL HISTORY: Noncontributory. ALLERGIES: No known drug allergies. REVIEW OF SYSTEMS: Limited. The patient denies any positives on review of systems. PHYSICAL EXAMINATION: VITAL SIGNS: Temperature is 97.5, pulse is 73, respiratory rate 16, oxygen saturation 98%, blood pre ssure 159/72. GENERAL: The patient is lying supine. She shakes her head yes or no upon questioning, but does not speak. HEENT: Normocephalic, atraumatic. RESPIRATORY: Breathing comfortably. ABDOMEN: Soft, nontender, nondistended. MUSCULOSKELETAL: The patient is able to flex and extend her feet and ankles. She has palpable dorsa lis pedis pulses. She reports feeling light touch at the dorsal and plantar feet. She moves her kne es spontaneously. She moves her hips without significant pain. She does have pain to palpation uche g the lumbar and sacral area of her spine. IMAGES: X-rays of the pelvis as well as CT scan of the pelvis and pelvis MRI are reviewed. These de monstrate especially on the CT scan insufficiency fractures of the S1 and S2 sacrum. These are minim ally displaced. There is some anterior listhesis of S1 on her lateral view. These appear chronic. IMPRESSION: Sacral insufficiency fractures in an elderly female now admitted for chest pain and alte red mental status. PLAN: At this point, I would recommend no specific treatment for her insufficiency fractures. These will generally heal without intervention. This would not be amenable to kyphoplasty or bracing. Enrico sherwood should continue walker, but cannot weightbear as tolerated. If she has ongoing difficulties after several months of nonoperative treatment, we could consider stabilization with sacroiliac screws, alt blane this would be highly unlikely. The patient would be a poor surgical candidate. I will order a new sacral x-ray to evaluate the position of her sacrum as well as healing. We will follow up on .
[2017-11-24] MEDS ORDERED: Vancomycin HCl 1 GM in Premix Bag 1 BAG IVPB SCH (21:00)
[2017-11-24] MEDS: Melatonin 3 MG TAB PO SCH (21:54)
[2017-11-24] MEDS: Brimonidine Tartrate 0.2% Ophth Soln 5 ml Bottle L EYE SCH (21:54)
[2017-11-24] MEDS: traZODone HCl 50 MG TAB PO SCH (21:54)
[2017-11-25] MEDS: traMADol HCl 50 MG TAB PO PRN ×2 (00:17→08:45)
[2017-11-25 04:25] LABS: #Eosinphils 0.1 thou/uL (0.0-0.7); #Lymphocytes 1.1 thou/uL (1.20-3.40); #Monocytes 0.6 thou/uL (0.11-0.59); #Neutrophils 4.9 thou/uL (1.40-6.50); %Basophils 0.4 % (0.0-1.0); %Lymphocytes 16.2 % (21.0-51.0); %Monocytes 8.4 % (0.0-10.0); %Neutrophils 73.9 % (42.0-75.0); Hemoglobin 11.3 g/dL (12.0-16.0); Mean Corpuscular HGB CONC 33.8 g/dL (32.0-36.0); Mean Corpuscular Hemoglobin 32.4 pg (27.0-31.0); Mean Corpuscular Volume 95.7 fl (81.0-99.0); Mean Platelet Volume 6.1 fL (7.4-10.4); Platelet Count 272 thou/uL (130-400); RBC Distribution Width 12.8 % (11.5-14.5); Red Blood Cell (RBC) Count 3.49 mill/uL (4.20-5.40); White Blood Cell (WBC) Count 6.6 thou/uL (4.8-10.8)
[2017-11-25 04:39] LABS: Anion Gap 11 mmol/L (10-20); BUN (Urea Nitrogen) 21 mg/dL (9.8-20.1); Calc. Creatinine Clearance 45 mL/min (70-130); Calcium 9.3 mg/dL (7.8-10.44); Carbon Dioxide 29 mmol/L (23-31); Chloride 96 mmol/L (98-107); Estimated GFR-MDRD 88; Glucose 104 mg/dL (83-110); Potassium 3.6 mmol/L (3.5-5.1); Sodium 132 mmol/L (136-145)
[2017-11-25] MEDS: Enoxaparin Sodium 40 MG/0.4 ML SYRINGE SC SCH (08:46)
[2017-11-25] MEDS: Brimonidine Tartrate 0.2% Ophth Soln 5 ml Bottle L EYE SCH ×2 (08:46→19:36)
[2017-11-25] MEDS: cefTRIAXone\\ROCEPHIN 1 GM, Syringe 0.4 ML in Sterile Water 9.6 ML SLOW IVP SCH (11:22)
[2017-11-25] MEDS: Aspirin 325 MG TAB PO SCH (11:29)
[2017-11-25] MEDS: Vancomycin HCl 750 MG in Sodium Chloride 0.9% 250 ML 250 ML IVPB SCH (11:29)
[2017-11-25] MEDS: Multivitamin W/ Minerals 1 TAB PO SCH (11:30)
[2017-11-25] MEDS: Amlodipine 5 MG TAB PO SCH (11:30)
--- NOTE | 2017-11-25 14:23 | PDOC.PN ---
- Subjective Encounter Start Date: 11/25/17 Encounter Start Time: 10:00 Patient is seen today along with Daughter at Bedside, She has Worseing mental Status According to daughter since 3-4 weeks following her hospitalization for Rhabdomyolysis and Sacral fractures, She is requesting a neurology consultation. - Objective MAR Reviewed: Yes Vital Signs & Weight: Vital Signs (12 hours) Temp Pulse Pulse Pulse Resp BP BP 11/25/17 11:30 69 111/63 11/25/17 10:30 70 80 119/61 11/25/17 08:57 97.8 F 72 16 11/25/17 08:15 73 74 137/68 11/25/17 07:13 97.8 F 72 16 11/25/17 04:40 97.4 F L 76 20 BP BP Pulse Ox 11/25/17 11:30 11/25/17 10:30 127/60 11/25/17 08:57 11/25/17 08:15 167/74 H 11/25/17 07:13 107/59 L 94 L 11/25/17 04:40 128/57 L 97 Weight Admit Weight 88 lb Weight 88 lb I&O: 11/24/17 11/25/17 11/26/17 06:59 06:59 06:59 Intake Total 680 Output Total 2250 Balance -1570 Result Diagrams: 11/25/17 03:49 11/25/17 03:50 Radiology Reviewed by me: Yes Dx/Plan (1) Hyponatremia Code(s): E87.1 - HYPO-OSMOLALITY AND HYPONATREMIA Status: Acute Comment: Likely from opiodes., will closley monitor on IV NS. (2) Acute encephalopathy Code(s): G93.40 - ENCEPHALOPATHY, UNSPECIFIED Status: Acute Comment: Multifactorial, likely from UTi with drug resistant enterococcus, but No leucocytosis, or likely from hyponatrmeia., Will need to look for Intracraneal bleeding, will do CT head, as pt requesting Neurolgy consult , will consult. (3) Rhabdomyolysis Code(s): M62.82 - RHABDOMYOLYSIS Status: Acute Qualifiers: Rhabdomyolysis type: non-traumatic Qualified Code(s): M62.82 - Rhabdomyolysis Comment: Persistant pain, Will closley monitor. No acute Rhabdomyolysis. (4) Moderate protein-calorie malnutrition Code(s): E44.0 - MODERATE PROTEIN-CALORIE MALNUTRITION Status: Chronic Comment: Will consult nutrition, Will do prealbumin. (5) ACS (acute coronary syndrome) Code(s): I24.9 - ACUTE ISCHEMIC HEART DISEASE, UNSPECIFIED Status: Acute Comment: Normal Trop, Will continue with Aspirin/ BB, pending nuclear stress test. (6) Acute UTI Code(s): N39.0 - URINARY TRACT INFECTION, SITE NOT SPECIFIED Status: Acute Comment: Will continue with IV vancomycin and Rocephin. 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 Pt planned to see urology outpaitent for Chronic Retention. - Plan cont current plan of care, plan discussed w/ family, PT/OT, group social worker, respiratory therapy, incentive spirometry, DVT proph w/lovenox * . - Discharge Day Encounter end time: 10:35 Review of Systems - Review of Systems Eyes: negative: Pain, Vision Change, Conjunctivae Inflammation, Eyelid Inflammation, Redness, Other ENT: negative: Ear Pain, Ear Discharge, Nose Pain, Nose Discharge, Nose Congestion, Mouth Pain, Mouth Swelling, Throat Pain, Throat Swelling, Other Respiratory: negative: Cough, Dry, Shortness of Breath, Hemoptysis, SOB with Excertion, Pleuritic Pain, Sputum, Wheezing Cardiovascular: negative: chest pain, palpitations, orthopnea, paroxysmal nocturnal dyspnea, edema, light headedness, other Gastrointestinal: negative: Nausea, Vomiting, Abdominal Pain, Diarrhea, Constipation, Melena, Hematochezia, Other Musculoskeletal: negative: Neck Pain, Shoulder Pain, Arm Pain, Back Pain, Hand Pain, Leg Pain, Foot Pain, Other Skin: negative: Rash, Lesions, Lei, Bruising, Other Other: Unable to obtain any historty due to mental status changes. - Medications/Allergies Allergies/Adverse Reactions: Allergies Allergy/AdvReac Type Severity Reaction Status Date / Time No Known Allergies Allergy Unverified 10/20/17 15:23 Medications: Current Medications Acetaminophen (Tylenol) 650 mg PO Q4H PRN PRN Reason: Headache/Fever or Pain Acetaminophen/Codeine Phosphate (Tylenol #3) 1 tab PO Q4H PRN PRN Reason: Pain Acetaminophen/Codeine Phosphate (Tylenol #3) 2 tab PO Q4HR PRN PRN Reason: Pain Hydrocodone Bitart/Acetaminophen ([place] 5/325) 1 tab PO Q4H PRN PRN Reason: Moderate Pain (4-6) Al Hydroxide/Mg Hydroxide (Maalox) 30 ml PO Q6H PRN PRN Reason: Heartburn or Indigestion Amlodipine Besylate (Norvasc) 5 mg PO DAILY [facility] Last Admin: 11/25/17 11:30 Dose: Not Given Artificial Tears (Tears Naturale) 1 drop EA EYE BIDPRN PRN PRN Reason: Dry Eyes Aspirin (Aspirin) 325 mg PO DAILY [facility] Last Admin: 11/25/17 11:29 Dose: 325 mg Benzonatate (Tessalon) 100 mg PO Q4H PRN PRN Reason: Cough Benzonatate (Tessalon) 100 mg PO Q4H PRN PRN Reason: Cough Bisacodyl (Dulcolax) 10 mg PO DAILYPRN PRN PRN Reason: Constipation Bisacodyl (Dulcolax) 10 mg DE DAILYPRN PRN PRN Reason: Constipation Brimonidine Tartrate (Alphagan 0.2% Oph Soln) 0 drop L EYE BID [facility] Last Admin: 11/25/17 08:46 Dose: 1 drop Calcium Carbonate (Tums) 1,000 mg PO Q4H PRN PRN Reason: Heartburn or Indigestion Calcium Carbonate (Oscal-500) 1,000 mg PO Q6HR PRN PRN Reason: Heartburn or Indigestion Calcium Carbonate (Tums) 500 mg PO Q6HR PRN PRN Reason: Heartburn or Indigestion Clonidine (Catapres) 0.1 mg PO Q4H PRN PRN Reason: Systolic BP > 160 Enoxaparin Sodium (Lovenox) 40 mg SC 0900 [facility] Last Admin: 11/25/17 08:46 Dose: 40 mg Guaifenesin (Robitussin Sf) 200 mg PO Q4H PRN PRN Reason: Cough Hydralazine HCl (Apresoline) 10 mg SLOW IVP Q4H PRN PRN Reason: Systolic BP > 170 Ceftriaxone Sodium 1 gm/ (Syringe 0.4 ml/ Sterile Water) 10 mls @ 120 mls/hr SLOW IVP 1100 [facility] Last Admin: 11/25/17 11:22 Dose: 10 mls Vancomycin HCl 750 mg/ Sodium (Chloride) 250 mls @ 250 mls/hr IVPB 1200 [facility] Last Admin: 11/25/17 11:29 Dose: 250 mls Iron/Minerals/Multivitamins (Theragran M) 1 tab PO DAILY [facility] Last Admin: 11/25/17 11:30 Dose: Not Given Loratadine (Claritin) 10 mg PO DAILYPRN PRN PRN Reason: Sinus Symptoms Lorazepam (Ativan) 1 mg PO Q4H PRN PRN Reason: Anxiety/Agitation Melatonin (Melatonin) 3 mg PO [facility] Last Admin: 11/24/17 21:54 Dose: 3 mg Miscellaneous Medication (Pharmacy To Dose) 0 each IVPB DAILYPRN PRN PRN Reason: LAB Morphine Sulfate (Morphine) 2 mg SLOW IVP Q4H PRN PRN Reason: moderate pain Nitroglycerin (Nitrostat) 0.4 mg PO Q5MIN PRN PRN Reason: Chest Pain Ondansetron HCl (Zofran) 4 mg IVP Q6H PRN PRN Reason: Nausea/Vomiting Last Admin: 11/25/17 14:15 Dose: 4 mg Senna (Senokot) 2 tab PO HSPRN PRN PRN Reason: Constipation Last Admin: 11/24/17 15:22 Dose: 2 tab Simethicone (Mylicon Chewable) 80 mg PO TIDPRN PRN PRN Reason: Heartburn or Indigestion Tramadol HCl (Ultram) 50 mg PO Q4H PRN PRN Reason: Moderate Pain (4-6) Last Admin: 11/25/17 08:45 Dose: 50 mg Trazodone HCl (Desyrel) 100 mg PO [facility] Last Admin: 11/24/17 21:54 Dose: 100 mg
[2017-11-25] MEDS ORDERED: Regadenoson 0.4 MG/5 ML SYRINGE ONE (14:46)
--- NOTE | 2017-11-25 15:41 | CT ---
CT BRAIN WITHOUT CONTRAST: History: Altered mental status. Lethargy and dizziness for several days. FINDINGS: Comparison made with exam of 10-02-13. No evidence of acute infarct, hemorrhage, midline shift, or abnormal extraaxial fluid collections are seen. The ventricular size is stable and the basilar cisterns are patent. The bony calvarium is inta ct. The visualized paranasal sinuses and mastoid air cells are well aerated. IMPRESSION: No CT evidence of acute intracranial process. POS: C
--- NOTE | 2017-11-25 16:21 | NM ---
NUCLEAR MEDICINE CARDIAC STRESS WITH EF AND WALL MOTION: HISTORY: Chest pain. COMPARISON: None. TECHNIQUE: The patient was administered 9 millicuries of technetium 99m sestamibi for rest imaging and 27 millic uries of technetium 99m sestamibi for stress imaging. Cardiac gating was performed. FINDINGS: There was a homogeneous distribution of the radiotracer in the left ventricular on the attenuation co rrection images. TID is 0.74. End-diastolic volume is 50 mL. End-systolic volume is 14 mL. CARDIAC GATING: Normal motion and thickening. Ejection fraction 72%. IMPRESSION: 1. No reversibility or fixed defect. 2. Ejection fraction 72%. POS: [facility]
[2017-11-25] MEDS: traZODone HCl 50 MG TAB PO SCH (19:37)
[2017-11-25] MEDS: Melatonin 3 MG TAB PO SCH (19:37)
[2017-11-25] MEDS: Acetaminophen/Codeine 30-300mg Tablet PO PRN (23:40)
--- NOTE | 2017-11-26 02:51 | CON ---
DATE OF CONSULTATION: 11/25/2017 REFERRING PHYSICIAN: Dr. Luis Alvarado. REASON FOR CONSULTATION: Altered mental status. HISTORY OF PRESENT ILLNESS: Ms. Cotton is a pleasant 77-year-old female who has been consulted for evaluation of altered mental status. History is obtained from daughter who was present at bedside. Daughter reports that prior to 10/18/2017, the patient had developed flu from which she recovered. She had presented on 10/18/2017 with some difficulty with memory. She also started having pain in her lower back. At that time, she was diagnosed with rhabdomyolysis as her CPK was mildly elevated. Sh e was noted that she was acting in somewhat odd behavior. She was having difficulty with remembering conversations. She was having difficulty with remembering how to perform simple activities. This c ontinued to get worse over the time. She continued to have pain in the lower back. She had presente d back again to the [facility] and was found to have a sacral fracture. She was in a rehab facility where she was noted to have increasing confusion, which prompted them to present to the [facility]. Daughter reports that her confusion has gotten worse to the point that she ca nnot remember the activities that she is already performed. She eats her meal and an hour later she forgets that what she ate. She would have a conversation with her and few minutes later she would as k the same question over. She is still able to recognize family members. She does not have any fletcher ucinations or delusions. There is no day night confusion. PAST MEDICAL HISTORY: Significant for hypertension, dyslipidemia, statin-induced rhabdomyolysis, sev ere protein-calorie malnutrition. PAST SURGICAL HISTORY: Significant for mesh removed from intestine, appendectomy, left hip surgery. SOCIAL HISTORY: She is a resident of [facility] doing rehabilitation. She does not smoke ciga rettes, drink alcohol or use illicit drugs. FAMILY HISTORY: Noncontributory. CURRENT MEDICATIONS: Please review MAR. ALLERGIES: No known drug allergies. REVIEW OF SYSTEMS: Unable to perform. PHYSICAL EXAMINATION: VITAL SIGNS: Blood pressure 143/65, pulse of 82, temperature of 98.2, respirations of 16, O2 sats of 95% on room air. GENERAL: Well-developed, well-nourished female, in no apparent distress. RESPIRATORY: Clear to auscultation bilaterally. CARDIOVASCULAR: Regular rate and rhythm. NEUROLOGIC: Mental status: The patient is awake, alert, oriented x3. Speech and language: Fluent speech. Cranial nerves: Pupils are 3 mm and reactive. Visual pham are intact. External muscles are intact. No nystagmus is noted. Face is symmetric. Tongue and uvula are midline. Motor exam sh owed normal tone and bulk with a 5/5 strength in both upper and lower extremities. Sensory: Sensati on is intact and symmetric. Deep tendon reflexes 2+ reflexes in both upper and lower extremities. B abinski: Plantar responses flexion bilaterally. Coordination intact to [id number] and finge r tapping bilaterally. LABORATORY DATA: Reviewed, which included CBC, CMP, lipid profile, urinalysis, which is significant for hemoglobin 11.3, hematocrit of 33.4. Sodium of 132, total cholesterol of 284, LDL of 199, HDL of 66, triglycerides of 96. Urinalysis showed greater than 50 to too numerous to count wbc's, 2+ bacte jose. Moderate leukocyte esterase. Urine culture was positive for Enterococcus species. IMAGING STUDIES: CT head without contrast was reviewed, which showed no acute intracranial abnormal ity. IMPRESSION: 1. Altered mental status, likely toxic metabolic encephalopathy. 2. Urinary tract infection. 3. Sacral fractures. ASSESSMENT AND PLAN: Ms. Cotton is a pleasant 77-year-old female, who presents with the changes in confusion and mentation. She is noted to have a urinary tract infection. She is also on 2 differen t pain medications, which can cause confusion to come on. At this time, I would recommend obtaining MRI brain without contrast. If this does not show any structural lesion, then the patient is record ed medically for encephalopathic changes. No further neurological workup needed at this time.
[2017-11-26] MEDS: Acetaminophen/Codeine 30-300mg Tablet PO PRN (03:35)
[2017-11-26] MEDS: traMADol HCl 50 MG TAB PO PRN ×2 (06:59→14:52)
[2017-11-26] MEDS: Amlodipine 5 MG TAB PO SCH (08:38)
[2017-11-26] MEDS: Brimonidine Tartrate 0.2% Ophth Soln 5 ml Bottle L EYE SCH (08:40)
[2017-11-26] MEDS: Enoxaparin Sodium 40 MG/0.4 ML SYRINGE SC SCH (08:40)
[2017-11-26] MEDS: Aspirin 325 MG TAB PO SCH (08:40)
[2017-11-26] MEDS: Multivitamin W/ Minerals 1 TAB PO SCH (08:40)
[2017-11-26 11:22] LABS: Vancomycin, Trough 6.1 ug/mL
[2017-11-26] MEDS ORDERED: Vancomycin HCl 1.25 GM in Sodium Chloride 0.9% 250 ML 250 ML IVPB SCH (12:00)
[2017-11-26] MEDS: cefTRIAXone\\ROCEPHIN 1 GM, Syringe 0.4 ML in Sterile Water 9.6 ML SLOW IVP SCH (12:30)
--- NOTE | 2017-11-26 12:48 | MRI ---
NONCONTRAST MADELYN MRI: HISTORY: Generalized weakness. History of fall. Sacral fracture. Altered mental status. COMPARISON: None. TECHNIQUE: A brain MRI is performed without intravenous Gadolinium administration. Multisequential, multiplanar imaging is performed. FINDINGS: Limited evaluation due to motion degradation. No obvious hemorrhage on the axial gradient echo seque nce. No parenchymal mass, mass effect, or midline shift. Brain volume is age appropriate. Cortical connell- white matter differentiation is preserved. The ventricles and sulci are patent and symmetric. The calvarium has a normal T1 marrow signal intensity. Midline brain parenchymal structures are unre markable. Central arterial flow voids are maintained. Absent restricted diffusion. Mucosal thickening of the paranasal sinuses is noted. Adequate mastoid air cell aeration. No hemorrhage on the axial gradient echo sequence. T2 and FLAIR white matter hyperintensities due to chronic small-vessel ischemic changes are noted. IMPRESSION: 1. Limited evaluation due to motion degradation. Absent restricted diffusion. No acute infarct. 2. Age-appropriate atrophy. Chronic small-vessel ischemic changes of the white matter are identifie d. POS: [facility]
[2017-11-26 15:30] VITALS: BP 121/61; TEMP 98
--- NOTE | 2017-11-27 01:46 | DIS ---
DATE OF ADMISSION: 11/24/2017 DATE OF DISCHARGE: 11/26/2017 DISCHARGE DIAGNOSES: 1. Chest pain, non-cardiac. 2. Urinary tract infection with Enterococcus species. 3. Hyponatremia, mild. 4. Acute metabolic encephalopathy. 5. History of sacral fractures. 6. Generalized weakness. CONSULTATIONS: Dr. Nano Torres with Neurology Service. Dr. Haynes with Orthopedic Surgery Service . PERTINENT LAB AND X-RAY FINDINGS: Sodium ranged between 132-133. Troponin I negative x3. Total cho lesterol 284, triglycerides 96, HDL 66, LDL 199. CBC showed hemoglobin of 11, hematocrit 33. Urine culture dated 11/24/2017 showed greater than 100,000 colonies of Enterococcus species. Portable ches t x-ray dated 11/24/2017 showed chronic changes bilaterally. No acute infiltrate identified. Sacrum and coccyx radiograph dated 11/24/2017 showed poor visualization of the sacrum due to overlying wale l gas. Cardiolite stress test dated 11/25/2017 showed no evidence for reversible or fixed ischemia w ith calculated ejection fraction of 72%. CT of the brain without contrast dated 11/25/2017 showed no acute intracranial process. MRI of the brain dated 11/26/2017 showed no acute intracranial process. Motion artifact. Chronic ischemic white matter changes noted. HOSPITAL COURSE: The patient was initially admitted after presenting from [facility] unit with complaints of chest pain. The patient underwent serial cardiac enzymes which were n egative x3 proceeding to Cardiolite stress testing showing no evidence of reversible or fixed ischemi a with overall calculated ejection fraction of 72%. The patient was also diagnosed with urinary trac t infection with Enterococcus species placed on IV Rocephin and vancomycin. The patient was transiti oned to oral Augmentin to complete outpatient antibiotic therapy. The patient was also noted with en cephalopathic changes, undergoing extensive neuro imaging as well as consultation with Neurology Serv ice without specific recommendations for intervention as the patient's encephalopathy, likely metabol ic in nature. The patient received treatment for the underlying urinary tract infection as well as g eneral supportive measures with some improvement in overall mentation prior to discharge. The patien t did receive IV fluids due to mild hyponatremia and was resumed on her regular outpatient antihypert ensive regimen. Currently, the patient is recommended for outpatient Urology followup to discuss and plan for eventual discontinuation of indwelling Greenberg catheter. Overall, patient did remain clinica lly stable for the remainder of the hospital course. Telemetry monitoring showed sinus mechanism wit hout evidence of acute arrhythmia or dysrhythmia. I have discussed the pertinent lab x-ray and neuro imaging studies with the patient and her daughter as well as plans for outpatient followup and retur n to [facility] in [place], [place]. Daughter and patient verbalized agreement and will be dischar ge on 11/26/2017. DISCHARGE MEDICATIONS: 1. Augmentin 500 mg 1 tab p.o. b.i.d. x5 days. 2. Tylenol 500 mg p.o. q.4-6 hours p.r.n. 3. Tylenol No. 3 one to two tabs p.o. q.4-6 hours p.r.n. 4. Norvasc 5 mg 1 tablet p.o. daily. 5. Tessalon 100 mg p.o. q.4 hours p.r.n. 6. Brimonidine tartrate 0.1% ophthalmic 1 drop to left eye b.i.d. 7. Calcium carbonate 500 mg 1-2 tabs p.o. q.6 hours p.r.n. 8. Clonidine 0.1 mg p.o. q.6 hours p.r.n. systolic over 180. 9. Melatonin 3 mg p.o. at bedtime. 10. Multivitamin 1 tab p.o. daily. 11. Senna 2 tabs p.o. at bedtime. 12. Tramadol 50 mg p.o. b.i.d. p.r.n. 13. Trazodone 100 mg p.o. at bedtime. FOLLOWUP: The patient may follow up with Dr. Roni Torres with Neurology Service within 10 days of natalie arora. The patient will follow up with Dr. Karen Diana within 1 week of discharge. The gopi ent will follow up with Dr. Ev Blackwell, primary care provider and to call her office for appointment t blake and date. CONDITION ON DISCHARGE: Stable. ACTIVITY: Ad rachel, rolling walker with standby assistance. DIET: Regular. CODE STATUS: FULL. DISPOSITION: Discharged to [place], [place] on 11/26/2017.
== END 2017-11-26 18:57 ==
LOC: ERS 02:11 → ERHOLD 04:26 → 2SW 07:22
PROVIDERS: ADMIT Internal Medicine; ATTEND Internal Medicine
DX: R07.89 Other chest pain (principal); G93.41 Metabolic encephalopathy; N39.0 Urinary tract infection, site not specified; B95.2 Enterococcus as the cause of diseases classified elsewhere; E87.1 Hypo-osmolality and hyponatremia; S32.10XA Unspecified fracture of sacrum, initial encounter for closed fracture; M62.82 Rhabdomyolysis; E44.0 Moderate protein-calorie malnutrition; I10 Essential (primary) hypertension; E78.5 Hyperlipidemia, unspecified; Z79.899 Other long term (current) drug therapy; Z98.890 Other specified postprocedural states
CPT/HCPCS: 70450; 70551; 71045; 72220; 78452; 80048; 80053; 80061; 80202; 82550; 82553; 84134; 84484 ×2; 85025 ×2; 87077; 87086; 87186; 93005; 93017; 94760 ×3; 96365; 96366; 96372 ×3; 96375; 96376 ×2; 97110; 97116; 97139 ×3; 97530; 99285; A9500; G0378; G8978; G8979; G8980; G8987; G8988; 36415; 81003; 81015; A4216; J0696; J1650; J2405; J2785; J3370; J7050